=== PATIENT | male | born 1990 | race African-American/Black ===

== ENCOUNTER 2022-07-16 10:51 | Emergency (ER) | payer MEDICAID, OTHER ==
[~2022-07-16] VITALS: Ht 185.4 cm; Wt 109.0 kg
[2022-07-16 11:01] VITALS: BP 131/95
[2022-07-16] MEDS ORDERED: ACET-2708 PO (12:30)
[2022-07-16] MEDS ORDERED: BACITRACIN 15GM TUBE TOP ONE ×2 (12:45→13:00)
== END 2022-07-16 13:09 | disposition home or self-care (01) ==
LOC: ER 10:51
DX: S61.216A Laceration without foreign body of right little finger without damage to nail, initial encounter (principal); Z48.00 Encounter for change or removal of nonsurgical wound dressing; X58.XXXA Exposure to other specified factors, initial encounter; Y93.9 Activity, unspecified
CPT/HCPCS: 99282